=== PATIENT | female | born 1945 | race Caucasian/White ===

== ENCOUNTER 2018-06-18 06:17 | Day surgery (SDC) | payer OTHER ==
[2018-06-18] MEDS ORDERED: CEFAZOLIN/SWI 1gm 1 GM/10 ML SYR ONE (07:03)
[2018-06-18] MEDS ORDERED: Ringers Lactate 1,000 ML IV ONE (07:03)
[2018-06-18] MEDS ORDERED: MIDAZOLAM HCL 2 MG/2 ML INJ ONE (07:21)
[2018-06-18] MEDS ORDERED: PROPOFOL 200 MG/20 ML VIAL IV ONE (07:21)
[2018-06-18] MEDS ORDERED: FENTANYL CITR 100 MCG/2 ML ONE (07:21)
[2018-06-18] MEDS ORDERED: LIDOCAINE 2% MPF 5 ML VIAL ONE (07:22)
[2018-06-18] MEDS ORDERED: BACITRACIN 50000 UNIT VIAL ONE (08:31)
[2018-06-18] MEDS ORDERED: NS 0.9% VIAL 10 ML ONE (08:31)
[2018-06-18] MEDS ORDERED: KETOROLAC 30 MG/ML INJ ONE (09:12)
[2018-06-18] MEDS ORDERED: BACITRACIN OINTMENT 15 GM TUBE TOP ONE (09:16)
--- NOTE | 2018-06-18 09:52 | RAD REPORT ---
EXAM DESCRIPTION: RAD - Foot Left 2 View - 06/18/2018 9:14 am CLINICAL HISTORY: ORIF LEFT FOOT 1ST DIGIT COMPARISON: No comparisons FINDINGS: Fluoroscopic imaging is submitted from first left foot MTP joint ORIF procedure. Details o f the procedure not available. Total fluoro time 0.1 minutes.
[2018-06-18 09:57] VITALS: TEMP 97.5; O2SAT 97
[2018-06-18] MEDS ORDERED: TRAMADOL HCL 50 MG TAB ONE (10:45)
[2018-06-18 13:13] VITALS: BP 163/58
== END 2018-06-18 11:55 | disposition home or self-care (01) ==
LOC: OR 06:17
PROVIDERS: ATTEND Podiatrist Foot & Ankle Surgery
PROC: 0SRN0JZ Replacement of Left Metatarsal-Phalangeal Joint with Synthetic Substitute, Open Approach (ICD-10-PCS; principal; 2018-06-18 07:30)
DX: M20.22 Hallux rigidus, left foot (principal); J45.909 Unspecified asthma, uncomplicated; Z88.3 Allergy status to other anti-infective agents
CPT/HCPCS: 28291; 73620; 88300; J0690; J2250; J2704; J3010

== ENCOUNTER 2018-06-29 16:44 | Observation (INO) | payer OTHER ==
--- NOTE | 2018-06-29 17:54 | RAD REPORT ---
EXAM DESCRIPTION: CT - Abdomen Pelvis Wo Contrast - 06/29/2018 5:46 pm CLINICAL HISTORY: Abdominal pain. ABD PAIN COMPARISON: <Comparisons> TECHNIQUE: CT imaging of the abdomen and pelvis was performed without contrast. Solid organ, bowel a nd vascular assessment is limited due to lack of IV and oral contrast. All CT scans are performed using dose optimization technique as appropriate and may include automated exposure control or mA/KV adjustment according to patient size. FINDINGS: The lower lung molina are clear. The liver demonstrates fatty infiltration. The spleen, pancreas, adrenal glands and kidneys are withi n normal limits for a limited non-contrast examination. No bowel obstruction, free air, free fluid or abscess. Sigmoid diverticulosis without diverticulitis. The appendix is not identified as a discrete structure, however, no secondary findings of appendicit is are identified. Small umbilical fat containing hernia. Moderate lower lumbar degenerative changes. IMPRESSION: No acute intra-abdominal or pelvic findings. A limited non-contrast examination was performed as detailed.
[2018-06-29] MEDS ORDERED: FAMOTIDINE 20 MG/2 ML VIAL IV ONE (18:01)
[2018-06-29] MEDS ORDERED: METRONIDAZOLE 500mg IVPB 500 MG/100 ML BAG IV ONE (18:02)
[2018-06-29] MEDS ORDERED: NA CHLORIDE 0.9% 1,000 ML ONE (18:02)
[2018-06-29] MEDS ORDERED: CIPROFLOXACIN 400mg IV 400 MG/200 ML BAG IV ONE (18:02)
[2018-06-29 18:41] LABS: Absolute Lymphocytes (CBC) 2.5 K/uL (0.7-4.9); Absolute Monocytes 0.4 K/uL (0.1-1.3); Absolute Neutrophil 3.5 K/uL (1.8-8.0); Basophils % 1.1 % (0-1.3); Eosinophils % 1.2 % (0-4.4); Hematocrit 37.6 % (36.0-45.0); Lymphocytes % 37.8 % (15.3-44.8); MCH 29.8 pg (27.0-35.0); MPV 9.1 fL (7.6-11.3); Monocytes % 6.7 % (3.3-12.3); RBC Red Blood Cell Count 4.37 M/uL (3.86-4.86)
[2018-06-29 18:42] LABS: Protime INR 1.08
--- NOTE | 2018-06-29 18:47 | RAD REPORT ---
EXAM DESCRIPTION: RAD - Chest Single View - 06/29/2018 5:55 pm CLINICAL HISTORY: COUGH Chest pain. COMPARISON: No comparisons FINDINGS: Portable technique limits examination quality. The lungs are grossly clear. The heart is normal in size. No displaced fractures. IMPRESSION: No acute intrathoracic process suspected.
[2018-06-29 18:59] LABS: ALT/SGPT 40 U/L (12-78); AST/SGOT 29 U/L (15-37); Albumin 3.6 g/dL (3.4-5.0); Alkaline Phosphatase 68 U/L (45-117); BUN Blood Urea Nitrogen 10 mg/dL (7-18); Bicarbonate 25 mmol/L (21-32); Bilirubin Direct < 0.1 mg/dL (0-0.2); Bilirubin Total 0.2 mg/dL (0.2-1.0); Glucose Level 98 mg/dL (74-106); Lipase 444 U/L (73-393); Magnesium 2.1 mg/dL (1.8-2.4); NT PRO-BNP 172 pg/mL (<125); Protein, Total 7.2 g/dL (6.4-8.2); Sodium Level 144 mmol/L (136-145); Troponin (Emerg Dept Use Only) 0.06 ng/mL (0.0-0.045)
--- NOTE | 2018-06-29 20:04 | EDPHYS ---
Physician Documentation [facility] Name: Molly Munoz Age: 73 yrs Sex: Female : 1945 Arrival Date: 06/29/2018 Time: 16:54 Bed 27 Private MD: ED Physician Ranjeet Alcazar HPI: 06/29 19:59 This 73 yrs old Female presents to ER via EMS with complaints of Bloody rosa m Stools. 19:59 The patient presents to the emergency department with nausea, that is mild. Onset: The rosa m symptoms/episode began/occurred 2 day(s) ago. Possible causes: unknown. The symptoms are aggravated by nothing. The symptoms are alleviated by nothing. The patient presents to the emergency department with rectal bleeding, a small amount. Abdominal pain: none is appreciated. Modifying factors: The symptoms are alleviated by nothing, the symptoms are aggravated by nothing. Associated signs and symptoms: Pertinent positives: diarrhea. Historical: - Allergies: 17:02 Iodinated Contrast- Oral and IV Dye; tl3 17:02 Clarithromycin; tl3 17:02 Iodine; tl3 - Home Meds: 17:02 albuterol sulfate 90 mcg/actuation inhalation HFAA [Active]; amitriptyline Oral tl3 [Active]; azelastine nasal nasal [Active]; difluprednate ophthalmic ophthalmic [Active]; duloxetine oral oral [Active]; estradiol Oral [Active]; folic acid Oral [Active]; melatonin Oral [Active]; Omeprazole Oral [Active]; fenofibrate oral oral [Active]; - Immunization history:: Adult Immunizations up to date. - Social history:: Smoking status: unknown. - Ebola Screening: : No symptoms or risks identified at this time. - Family history:: not pertinent. ROS: 19:59 Constitutional: Negative for fever, chills, and weight loss, Eyes: Negative for injury, rosa m pain, redness, and discharge, ENT: Negative for injury, pain, and discharge, Neck: Negative for injury, pain, and swelling, Cardiovascular: Negative for chest pain, palpitations, and edema, Respiratory: Negative for shortness of breath, cough, wheezing, and pleuritic chest pain, Back: Negative for injury and pain, : Negative for injury, bleeding, discharge, and swelling, MS/Extremity: Negative for injury and deformity, Skin: Negative for injury, rash, and discoloration, Neuro: Negative for headache, weakness, numbness, tingling, and seizure, Psych: Negative for depression, anxiety, suicide ideation, homicidal ideation, and hallucinations, Allergy/Immunology: Negative for hives, rash, and allergies, Endocrine: Negative for neck swelling, polydipsia, polyuria, polyphagia, and marked weight changes, Hematologic/Lymphatic: Negative for swollen nodes, abnormal bleeding, and unusual bruising. 19:59 Abdomen/GI: Positive for abdominal pain, nausea, diarrhea. Exam: 19:59 Constitutional: This is a well developed, well nourished patient who is awake, alert, rosa m and in no acute distress. Head/Face: Normocephalic, atraumatic. Eyes: Pupils equal round and reactive to light, extra-ocular motions intact. Lids and lashes normal. Conjunctiva and sclera are non-icteric and not injected. Cornea within normal limits. Periorbital areas with no swelling, redness, or edema. ENT: Nares patent. No nasal discharge, no septal abnormalities noted. Tympanic membranes are normal and external auditory canals are clear. Oropharynx with no redness, swelling, or masses, exudates, or evidence of obstruction, uvula midline. Mucous membranes moist. Neck: Trachea midline, no thyromegaly or masses palpated, and no cervical lymphadenopathy. Supple, full range of motion without nuchal rigidity, or vertebral point tenderness. No Meningismus. Chest/axilla: Normal chest wall appearance and motion. Nontender with no deformity. No lesions are appreciated. Cardiovascular: Regular rate and rhythm with a normal S1 and S2. No gallops, murmurs, or rubs. Normal PMI, no JVD. No pulse deficits. Respiratory: Lungs have equal breath sounds bilaterally, clear to auscultation and percussion. No rales, rhonchi or wheezes noted. No increased work of breathing, no retractions or nasal flaring. Abdomen/GI: Soft, non-tender, with normal bowel sounds. No distension or tympany. No guarding or rebound. No evidence of tenderness throughout. Back: No spinal tenderness. No costovertebral tenderness. Full range of motion. Female : Normal external genitalia. Skin: Warm, dry with normal turgor. Normal color with no rashes, no lesions, and no evidence of cellulitis. MS/ Extremity: Pulses equal, no cyanosis. Neurovascular intact. Full, normal range of motion. Neuro: Awake and alert, GCS 15, oriented to person, place, time, and situation. Cranial nerves II-XII grossly intact. Motor strength 5/5 in all extremities. Sensory grossly intact. Cerebellar exam normal. Normal gait. Psych: Awake, alert, with orientation to person, place and time. Behavior, mood, and affect are within normal limits. 19:59 Abdomen/GI: Bowel sounds: normal, Palpation: abdomen is soft and non-tender, Rectal exam: rectal tone normal, Stool: guaiac negative, hemorrhoid(s), are not appreciated, mass, is not appreciated, swelling, is not appreciated, tenderness, is not appreciated, the exam is chaperoned by the nurse. Vital Signs: 17:02 BP 180 / 91; Pulse 84; Resp 18; Temp 98; Pulse Ox 100% on R/A; tl3 17:45 BP 162 / 75; Pulse 75; Resp 18; Pulse Ox 100% on R/A; tl3 19:05 BP 180 / 97; Pulse 79; Resp 18; Pulse Ox 100% on R/A; tl3 20:52 Weight 72.57 kg; tl3 20:53 BP 130 / 55; Pulse 96; Resp 18; Pulse Ox 100% on R/A; tl3 06/30 00:10 BP 149 / 83; Pulse 83; Resp 18; Pulse Ox 100% on R/A; tl3 MDM: 06/29 17:14 Patient medically screened. [facility] 19:59 Data reviewed: vital signs, nurses notes, lab test result(s), EKG, radiologic studies, [facility] CT scan, plain films. 06/29 17:26 Order name: Basic Metabolic Panel; Complete Time: 19:33 [facility] 06/29 17:26 Order name: CBC with Diff; Complete Time: 19:33 [facility] 06/29 17:26 Order name: LFT's; Complete Time: 19:33 [facility] 06/29 17:26 Order name: Magnesium; Complete Time: 19:33 [facility] 06/29 17:26 Order name: NT PRO-BNP; Complete Time: 19:33 [facility] 06/29 17:26 Order name: PT-INR; Complete Time: 19:33 [facility] 06/29 17:26 Order name: Troponin (emerg Dept Use Only); Complete Time: 19:33 [facility] 06/29 17:26 Order name: Lipase; Complete Time: 19:33 [facility] 06/29 17:26 Order name: Urine Culture [facility] 06/29 17:26 Order name: Type And Screen; Complete Time: 19:33 [facility] 06/29 20:08 Order name: ABO/RH no charge [facility] 06/30 05:11 Order name: CBC with Automated Diff [facility] 06/30 05:40 Order name: Comprehensive Metabolic Panel [facility] 06/30 05:40 Order name: Lipid Profile [facility] 06/29 17:26 Order name: XRAY Chest (1 view); Complete Time: 19:33 [facility] 06/29 17:26 Order name: EKG; Complete Time: 17:26 [facility] 06/29 17:26 Order name: Cardiac monitoring; Complete Time: 19:02 [facility] 06/29 17:26 Order name: EKG - Nurse/Tech; Complete Time: 19:02 [facility] 06/29 17:26 Order name: CT Abd/Pelvis - Without Cont; Complete Time: 19:33 [facility] 06/29 20:06 Order name: CONS Physician Consult; Complete Time: 20:55 [facility] 06/30 05:40 Order name: Magnesium [facility] 06/30 05:40 Order name: Lipase [facility] 06/29 17:26 Order name: IV Saline Lock; Complete Time: 19:02 [facility] 06/29 17:26 Order name: Labs collected and sent; Complete Time: 19:02 [facility] 06/29 17:26 Order name: O2 Per Protocol; Complete Time: 19:02 [facility] 06/29 17:26 Order name: O2 Sat Monitoring; Complete Time: 00:40 [facility] Administered Medications: 17:45 Drug: NS 0.9% 1000 ml Route: IV; Rate: 125 ml/hr; Site: left antecubital; Delivery: tl3 Primary tubing; 06/30 00:08 Follow up: IV Status: Order to discontinue infusion; IV Intake: 375ml tl3 06/29 17:45 Drug: Cipro 400 mg Volume: 200 ml; Route: IVPB; Infused Over: 60 mins; Site: left tl3 antecubital; Delivery: Primary tubing; 20:00 Follow up: IV Status: Completed infusion; IV Intake: 200ml tl3 17:45 Drug: Flagyl 500 mg Volume: 100 ml; Route: IVPB; Rate: 200 ml/hr; Infused Over: 30 tl3 mins; Site: left antecubital; Delivery: Primary tubing; 19:07 Follow up: IV Status: Completed infusion; IV Intake: 200ml tl3 19:01 Drug: Pepcid 20 mg Route: IVP; Infused Over: 2 mins; Site: left antecubital; tl3 20:05 Drug: Potassium Chloride 20 mEq Route: IV; Rate: per protocol; Site: left antecubital; tl3 Delivery: Primary tubing; 22:15 Follow up: IV Status: Completed infusion; IV Intake: 100ml tl3 20:05 Drug: NS 0.9% with KCl 20 mEq/L 1000 ml Route: IV; Rate: 125 ml/hr; Site: left tl3 antecubital; Delivery: Primary tubing; 20:55 Drug: Aspirin 162 mg Route: PO; tl3 21:00 Drug: Lovenox 1 mg/kg Route: Sub-Q; Site: abdomen; tl3 Disposition: 06/29/18 20:03 Hospitalization ordered by Neel Chavira for Observation. Preliminary diagnosis are Nausea, Gastrointestinal hemorrhage, unspecified - lower bleeding, Hypokalemia. - Bed requested for Telemetry/MedSurg (observation). - Status is Observation. aj1 - Condition is Stable. - Problem is new. - Symptoms have improved. UTI on Admission? No Signatures: Dispatcher [employer] EDMS June Menjivar Angela, RN RN aj1 La Elise RN RN mw Anderson, Corey, MD MD cha Lowrey, Tammy, RN RN tl3 Corrections: (The following items were deleted from the chart) 20:21 20:03 Hospitalization Ordered by Neel Chavira MD for Observation. Preliminary breann diagnosis is Nausea; Gastrointestinal hemorrhage, unspecified - lower bleeding; Hypokalemia. Bed requested for Telemetry/MedSurg (observation). Status is Observation. Condition is Stable. Problem is new. Symptoms have improved. UTI on Admission? No. rosa m 06/30 08:28 06/29 20:21 06/29/2018 20:03 Hospitalization Ordered by Neel Chavira MD for bd Observation. Preliminary diagnosis is Nausea; Gastrointestinal hemorrhage, unspecified - lower bleeding; Hypokalemia. Bed requested for [facility] ER HOLD. Status is Observation. Condition is Stable. Problem is new. Symptoms have improved. UTI on Admission? No. mw 06/30 12:52 08:28 06/29/2018 20:03 Hospitalization Ordered by Neel Chavira MD for Observation. aj1 Preliminary diagnosis is Nausea; Gastrointestinal hemorrhage, unspecified - lower bleeding; Hypokalemia. Bed requested for Telemetry/MedSurg (observation). Status is Observation. Condition is Stable. Problem is new. Symptoms have improved. UTI on Admission? No. bd
--- NOTE | 2018-06-29 20:04 | ER ---
Nurse's Notes [facility] Name: Molly Munoz Age: 73 yrs Sex: Female : 1945 Arrival Date: 06/29/2018 Time: 16:54 Bed 27 Private MD: Diagnosis: Nausea;Gastrointestinal hemorrhage, unspecified-lower bleeding;Hypokalemia Presentation: 06/29 16:54 Presenting complaint: EMS states: pt has had two days of bloody stools, complains of tl3 being diaphoretic due to medications that she is on since left foot surgery 10 days ago, also believes that she may have SARS due to the bloody stools. Transition of care: patient was not received from another setting of care. Onset of symptoms was June 27, 2018. Risk Assessment: Do you want to hurt yourself or someone else? Patient reports no desire to harm self or others. Initial Sepsis Screen: Does the patient meet any 2 criteria? No. Patient's initial sepsis screen is negative. Does the patient have a suspected source of infection? No. Patient's initial sepsis screen is negative. Care prior to arrival: None. 16:54 Method Of Arrival: EMS: [facility] tl3 16:54 Acuity: CASSIA 3 tl3 Triage Assessment: 17:02 General: Appears in no apparent distress. well groomed, well developed, well nourished, tl3 Behavior is calm, cooperative, appropriate for age. Pain: Complains of pain in gluteal cleft. EENT: No deficits noted. No signs and/or symptoms were reported regarding the EENT system. Neuro: No deficits noted. Cardiovascular: Patient's skin is warm and dry. Respiratory: Airway is patent Respiratory effort is even, unlabored, Respiratory pattern is regular, symmetrical, Breath sounds are clear bilaterally. GI: Reports bloody stool. : No signs and/or symptoms were reported regarding the genitourinary system. Derm: No signs and/or symptoms reported regarding the dermatologic system. Musculoskeletal: No signs and/or symptoms reported regarding the musculoskeletal system. Historical: - Allergies: 17:02 Iodinated Contrast- Oral and IV Dye; tl3 17:02 Clarithromycin; tl3 17:02 Iodine; tl3 - Home Meds: 17:02 albuterol sulfate 90 mcg/actuation inhalation HFAA [Active]; amitriptyline Oral tl3 [Active]; azelastine nasal nasal [Active]; difluprednate ophthalmic ophthalmic [Active]; duloxetine oral oral [Active]; estradiol Oral [Active]; folic acid Oral [Active]; melatonin Oral [Active]; Omeprazole Oral [Active]; fenofibrate oral oral [Active]; - Immunization history:: Adult Immunizations up to date. - Social history:: Smoking status: unknown. - Ebola Screening: : No symptoms or risks identified at this time. - Family history:: not pertinent. Screenin:05 Abuse screen: Denies threats or abuse. Nutritional screening: No deficits noted. tl3 Tuberculosis screening: No symptoms or risk factors identified. Fall Risk None identified. Assessment: 17:05 Reassessment: No changes from previously documented assessment. tl3 17:45 Reassessment: Patient appears in no apparent distress at this time. No changes from tl3 previously documented assessment. Patient and/or family updated on plan of care and expected duration. Pain level reassessed. Patient is alert, oriented x 3, equal unlabored respirations, skin warm/dry/pink. pt back from Radiology. 19:05 Reassessment: Patient appears in no apparent distress at this time. No changes from tl3 previously documented assessment. Patient and/or family updated on plan of care and expected duration. Pain level reassessed. Patient is alert, oriented x 3, equal unlabored respirations, skin warm/dry/pink. 20:53 Reassessment: Patient appears in no apparent distress at this time. No changes from tl3 previously documented assessment. Patient and/or family updated on plan of care and expected duration. Pain level reassessed. Patient is alert, oriented x 3, equal unlabored respirations, skin warm/dry/pink. 06/30 00:10 Reassessment: Patient appears in no apparent distress at this time. No changes from tl3 previously documented assessment. Patient and/or family updated on plan of care and expected duration. Pain level reassessed. Patient is alert, oriented x 3, equal unlabored respirations, skin warm/dry/pink. Vital Signs: 06/29 17:02 BP 180 / 91; Pulse 84; Resp 18; Temp 98; Pulse Ox 100% on R/A; tl3 17:45 BP 162 / 75; Pulse 75; Resp 18; Pulse Ox 100% on R/A; tl3 19:05 BP 180 / 97; Pulse 79; Resp 18; Pulse Ox 100% on R/A; tl3 20:52 Weight 72.57 kg; tl3 20:53 BP 130 / 55; Pulse 96; Resp 18; Pulse Ox 100% on R/A; tl3 06/30 00:10 BP 149 / 83; Pulse 83; Resp 18; Pulse Ox 100% on R/A; tl3 ED Course: 06/29 16:54 Patient arrived in ED. tl3 16:58 Triage completed. tl3 17:02 Arm band placed on right wrist. tl3 17:05 Patient has correct armband on for positive identification. Bed in low position. Call tl3 light in reach. Side rails up X 1. Pulse ox on. NIBP on. 17:05 No provider procedures requiring assistance completed. tl3 17:14 Ranjeet Alcazar MD is Attending Physician. rosa m 17:45 Initial lab(s) drawn, by nj, sent to lab. Inserted saline lock: 20 gauge in left tl3 antecubital area, using aseptic technique. Blood collected. 17:46 CT Abd/Pelvis - Without Cont In Process Unspecified. EDMS 17:46 CT completed. Patient moved to CT via wheelchair. Patient moved to CT via stretcher. cw1 17:47 Mechelle Benitez, RN is Primary Nurse. tl3 17:55 XRAY Chest (1 view) In Process Unspecified. EDMS 20:02 Neel Chavira MD is Hospitalizing Provider. rosa m 20:53 Patient admitted, IV remains in place. tl3 06/30 00:08 Wound care: to surgical located on left foot was dressed with Vaseline gauze, non stick tl3 dressing, wrapped with myra bandage. Administered Medications: 06/29 17:45 Drug: NS 0.9% 1000 ml Route: IV; Rate: 125 ml/hr; Site: left antecubital; Delivery: tl3 Primary tubing; 06/30 00:08 Follow up: IV Status: Order to discontinue infusion; IV Intake: 375ml tl3 06/29 17:45 Drug: Cipro 400 mg Volume: 200 ml; Route: IVPB; Infused Over: 60 mins; Site: left tl3 antecubital; Delivery: Primary tubing; 20:00 Follow up: IV Status: Completed infusion; IV Intake: 200ml tl3 17:45 Drug: Flagyl 500 mg Volume: 100 ml; Route: IVPB; Rate: 200 ml/hr; Infused Over: 30 tl3 mins; Site: left antecubital; Delivery: Primary tubing; 19:07 Follow up: IV Status: Completed infusion; IV Intake: 200ml tl3 19:01 Drug: Pepcid 20 mg Route: IVP; Infused Over: 2 mins; Site: left antecubital; tl3 20:05 Drug: Potassium Chloride 20 mEq Route: IV; Rate: per protocol; Site: left antecubital; tl3 Delivery: Primary tubing; 22:15 Follow up: IV Status: Completed infusion; IV Intake: 100ml tl3 20:05 Drug: NS 0.9% with KCl 20 mEq/L 1000 ml Route: IV; Rate: 125 ml/hr; Site: left tl3 antecubital; Delivery: Primary tubing; 20:55 Drug: Aspirin 162 mg Route: PO; tl3 21:00 Drug: Lovenox 1 mg/kg Route: Sub-Q; Site: abdomen; tl3 Intake: 19:07 IV: 200ml; Total: 200ml. tl3 20:00 IV: 200ml; Total: 400ml. tl3 22:15 IV: 100ml; Total: 500ml. tl3 06/30 00:08 IV: 375ml; Total: 875ml. tl3 Outcome: 06/29 20:03 Decision to Hospitalize by Provider. rosa m 20:53 Admitted to ER Hold. Please see [facility] for further documentation. tl3 20:53 Condition: stable 20:53 Instructed on the need for admit, Demonstrated understanding of instructions. 06/30 12:52 Patient left the ED. aj1 Signatures: Dispatcher [employer] Magalis Wakefield RN RN aj1 Ranjeet Alcazar MD MD cha Woodley, Crystal cw1 Mechelle Benitez, CASA RN tl3
[2018-06-29] MEDS ORDERED: ASPIRIN 81 MG CHEWABLE TABLET ONE ×2 (21:05→21:24)
[2018-06-29] MEDS ORDERED: NS KCL 20MEQ 1,000 ML IV ONE ×2 (21:06→21:07)
[2018-06-29] MEDS ORDERED: ENOXAPARIN 30 MG/0.3 ML SQ ONE (21:06)
[2018-06-29] MEDS ORDERED: ENOXAPARIN 40 MG/0.4 ML SQ ONE (21:06)
[2018-06-29] MEDS ORDERED: KCL 20 MEQ/100 mL IVPB 20 MEQ/100 ML BAG IV ONE (21:07)
[2018-06-29] MEDS ORDERED: ACETAMINOPHEN 500 MG TAB PO PRN (21:23)
[2018-06-29] MEDS ORDERED: MORPHINE 2 MG/ML SYR IV PRN (21:23)
[2018-06-29] MEDS ORDERED: ONDANSETRON 4 MG/2 ML VIAL IV PRN (21:23)
[2018-06-29] MEDS ORDERED: NA CHLORIDE 0.9% 1,000 ML IV SCH (22:00)
[2018-06-30 02:54] VITALS: O2SAT 98
[2018-06-30] MEDS ORDERED: NS KCL 20MEQ 1,000 ML IV ONE (04:01)
[2018-06-30 05:09] LABS: Absolute Lymphocytes (CBC) 2.2 K/uL (0.7-4.9); Absolute Monocytes 0.4 K/uL (0.1-1.3); Absolute Neutrophil 2.3 K/uL (1.8-8.0); Basophils % 1.2 % (0-1.3); Eosinophils % 1.6 % (0-4.4); Hematocrit 34.7 % (36.0-45.0); Lymphocytes % 43.9 % (15.3-44.8); MCH 28.9 pg (27.0-35.0); MCV 86.7 fL (80-100); MPV 8.7 fL (7.6-11.3); Monocytes % 8.1 % (3.3-12.3); RBC Red Blood Cell Count 4.01 M/uL (3.86-4.86)
[2018-06-30 05:27] LABS: ALT/SGPT 32 U/L (12-78); AST/SGOT 22 U/L (15-37); Albumin 2.9 g/dL (3.4-5.0); Alkaline Phosphatase 58 U/L (45-117); BUN Blood Urea Nitrogen 7 mg/dL (7-18); Bicarbonate 23 mmol/L (21-32); Bilirubin Total 0.2 mg/dL (0.2-1.0); Glucose Level 95 mg/dL (74-106); HDL Cholesterol 44 mg/dL (40-60); LDL Cholesterol, Calculated 72 (<130); Lipase 414 U/L (73-393); Magnesium 1.8 mg/dL (1.8-2.4); Potassium 3.2 mmol/L (3.5-5.1); Sodium Level 147 mmol/L (136-145)
[2018-06-30] MEDS ORDERED: DEXTRAN 70 OP PRN (07:22)
[2018-06-30] MEDS ORDERED: HYPROMELLOSE OP PRN (07:22)
--- NOTE | 2018-06-30 07:34 | EKG ---
Test Date: 2018-06-29 Test Time: 20:40:06 Line Tender: MEASUREMENT RESULTS: Intervals: Rate: 66 VA: 146 QRSD: 94 QT: 448 QTc: 469 [place]: P: 73 VA: 146 QRS: 60 T: 73 INTERPRETIVE STATEMENTS: Normal sinus rhythm Normal ECG No previous ECG available for comparison Electronically Signed On 06-30-18 07:33:21 PATHOLOGY LAB TECHNICIAN by Tesfaye Cross
[2018-06-30] MEDS ORDERED: NACHLORIDE 0.45% 1,000 ML IV SCH (08:00)
--- NOTE | 2018-06-30 08:38 | P.HP ---
Certification for Inpatient Patient admitted to: Observation With expected LOS: <2 Midnights Patient will require the following post-hospital care: None Practitioner: I am a practitioner with admitting privileges, knowledge of patient current condition, hospital course, and medical plan of care. Services: Services provided to patient in accordance with Admission requirements found in Title 42 Section 412.3 of the Code of Federal Regulations Patient History Date of Service: 06/29/18 Reason for admission: Intractable nausea and vomiting/lower GI bleeding/ elevated troponin History of Present Illness: Patient is a 73-year-old female came into the hospital with intractable nausea and vomiting. Patient also had persistent diarrhea. Her diarrhea has been her biggest complaint. This has been going on for the last 2 days. She has gone numerous times throughout today, and patient continues to have some lower GI bleeding. Patient recently had surgery on her left foot. Since that time she has been doing okay except for the occasional pain. Patient does not have any blood thinning medication. She came into the hospital for further evaluation. Allergies clarithromycin [From Biaxin] Adverse Reaction (Verified 06/16/18 13:13) swelling Iodinated Contrast- Oral and IV Dye Adverse Reaction (Verified 06/16/18 13:13) swelling iodine Adverse Reaction (Verified 06/16/18 13:13) swelling Home Medications: Albuterol Inhaler [Ventolin Inhaler] 2 puff IH Q6H PRN 06/16/18 Albuterol Neb [Proventil 0.083% Neb Soln] 2.5 mg IH BID 06/16/18 Amitriptyline HCl 100 mg PO BEDTIME 06/16/18 Duloxetine HCl 30 mg PO DAILY 06/16/18 Estradiol [Vagifem] 10 mcg VG EVERY 3RD DAY 06/16/18 Fenofibrate [Tricor] 145 mg PO DAILY 06/16/18 Folic Acid 0.8 mg PO DAILY 06/16/18 Multivitamin [Multivitamins] 1 each PO DAILY 06/16/18 Omeprazole 20 mg PO DAILY 06/16/18 Dextran 70/Hypromellose [Natural Balance Tears Eye Drop] 15 ml OP Q12HR PRN - Past Medical/Surgical History Has patient received pneumonia vaccine in the past: Yes Diabetic: No -: Fibromyalgia -: Arthritis -: Bilat knee replacement -: Cystocele sx - badder suspension -: 4 eye surgeries -: Tonsillectomy -: L. foot sx - 06/18/18 - Dr. Killian -: R. foot sx - Social History Smoking Status: Former smoker Alcohol use: No CD- Drugs: No Caffeine use: Yes Place of Residence: Home Review of Systems 10-point ROS is otherwise unremarkable Physical Examination - Vital Signs Temperature: 98.9 F Blood Pressure: 176/70 Pulse: 72 Respirations: 18 Pulse Ox (%): 99 - Physical Exam General: Alert, In no apparent distress, Oriented x3 HEENT: Atraumatic, PERRLA, Mucous membr. moist/pink, EOMI, Sclerae nonicteric Neck: Supple, 2+ carotid pulse no bruit, No LAD, Without JVD or thyroid abnormality Respiratory: Clear to auscultation bilaterally, Normal air movement Cardiovascular: Regular rate/rhythm, Normal S1 S2, No murmurs Gastrointestinal: Normal bowel sounds, Soft and benign, Non-distended, No tenderness Musculoskeletal: No clubbing, No swelling, No tenderness Integumentary: No rashes Neurological: Normal gait, Normal speech, Normal strength at 5/5 x4 extr, Normal tone, Sensation intact, Cranial nerves 3-12 intact, Normal affect Lymphatics: No axilla or inguinal lymphadenopathy - Studies Laboratory Data (last 24 hrs) 06/29/18 18:00: PT 12.7 H, INR 1.08 06/29/18 18:00: WBC 6.6, Hgb 13.0, Hct 37.6, Plt Count 333 06/29/18 18:00: Sodium 144, Potassium 3.0 L, BUN 10, Creatinine 0.70, Glucose 98 , Magnesium 2.1, Total Bilirubin 0.2, AST 29, ALT 40, Alkaline Phosphatase 68, Lipase 444 H Assessment & Plan - Problems (Diagnosis) (1) GI bleed Current Visit: Yes Status: Acute (2) Nausea & vomiting Current Visit: Yes Status: Acute (3) Status post left foot surgery Current Visit: Yes Status: Acute (4) Diarrhea Current Visit: Yes Status: Acute - Plan Plan: 1. Continue with IV hydration 2. Cardiology consultation 3. Continue with pain control 4. NPO and resume clear liquid diet in the morning if no more diarrhea 5. GI consultation in a.m. if hemoglobin decreases 6. Serial H&H, and we will monitor LFTs and lipase along with electrolytes. 7. GI and DVT prophylaxis Discharge Plan: Home Plan to discharge in: 24 Hours - Advance Directives Does patient have a Living Will: No Does patient have a Durable POA for Healthcare: No - Code Status/Comfort Care Code Status Assessed: Yes Code Status: Full Code Critical Care: No Time Spent Managing PTS Care (In Minutes): 50
[2018-06-30] MEDS ORDERED: FENOFIBRATE 160 MG TAB PO SCH (09:00)
[2018-06-30] MEDS ORDERED: FOLIC ACID 1 MG TABLET PO SCH (09:00)
[2018-06-30] MEDS ORDERED: MULTIVIT W/ MINERAL TAB PO SCH (09:00)
[2018-06-30] MEDS ORDERED: DULOXETINE 30 MG CAP PO SCH (09:00)
[2018-06-30] MEDS ORDERED: FOLIC ACID 1 MG TABLET ONE (10:19)
[2018-06-30 13:33] VITALS: BMI 29.3
--- NOTE | 2018-06-30 16:28 | P.DS ---
Admission Date: 06/29/18 Discharge Date: 06/30/18 Primary Care Provider: Saúl Jimenez; Cardiology-Dr. Martinez Disposition: ROUTINE DISCHARGE Discharge Condition: GOOD Reason for Admission: Intractable nausea and vomiting/lower GI bleeding/ elevated troponin Consultations: Cardiology-Dr. Cross Procedures: CT Scan: CLINICAL HISTORY: Abdominal pain. ABD PAIN COMPARISON: <Comparisons> TECHNIQUE: CT imaging of the abdomen and pelvis was performed without contrast. Solid organ, bowel and vascular assessment is limited due to lack of IV and oral contrast. All CT scans are performed using dose optimization technique as appropriate and may include automated exposure control or mA/KV adjustment according to patient size. FINDINGS: The lower lung molina are clear. The liver demonstrates fatty infiltration. The spleen, pancreas, adrenal glands and kidneys are within normal limits for a limited non-contrast examination. No bowel obstruction, free air, free fluid or abscess. Sigmoid diverticulosis without diverticulitis. The appendix is not identified as a discrete structure, however, no secondary findings of appendicitis are identified. Small umbilical fat containing hernia. Moderate lower lumbar degenerative changes. IMPRESSION: No acute intra-abdominal or pelvic findings. Medical Problem List: Nausea, vomiting with mild rectal bleeding and diarrhea likely viral Brief History of Present Illness: 73-year-old female presented emergency room with nausea, vomiting and diarrhea. Patient evaluated in the emergency room. Patient admitted for further evaluation. Hospital Course: Patient presented with nausea, vomiting and diarrhea. Patient also had mild rectal bleeding. CT scan revealed no significant abnormality. Viral infection suspected. Patient was able tolerate her diet. No significant abdominal pain at discharge. No rectal bleeding noted at discharge. Diarrhea mild. C diff culture obtained. Patient will continue with Imodium [id number] as needed for diarrhea. Continue with GI soft diet and advance as tolerated. Patient will follow up with a PCP within 1 week to follow up this hospitalization. Vital Signs/Physical Exam: Temp Pulse Resp BP Pulse Ox 98.0 F 78 16 129/83 99 06/30/18 13:07 06/30/18 13:07 06/30/18 13:07 06/30/18 13:07 06/30/18 13:07 General: Alert, In no apparent distress, Oriented x3, Cooperative HEENT: Atraumatic Neck: Supple Respiratory: Clear to auscultation bilaterally Cardiovascular: Normal pulses, Regular rate/rhythm Gastrointestinal: Normal bowel sounds, Soft and benign, Non-distended, No tenderness, No masses, No rebound, No guarding Musculoskeletal: No erythema, No tenderness, No warmth Integumentary: No tenderness/swelling, No erythema, No warmth, No cyanosis Neurological: Normal speech, Normal strength at 5/5 x4 extr, Normal tone, Normal affect Laboratory Data at Discharge: WBC 5.1 K/uL (4.3-10.9) D 06/30/18 04:00 Hgb 11.6 g/dL (12.0-15.0) L 06/30/18 04:00 Hct 34.7 % (36.0-45.0) L 06/30/18 04:00 Plt Count 259 K/uL (152-406) D 06/30/18 04:00 PT 12.7 SECONDS (9.5-12.5) H 06/29/18 18:00 INR 1.08 06/29/18 18:00 Sodium 147 mmol/L (136-145) H 06/30/18 04:00 Potassium 3.2 mmol/L (3.5-5.1) L 06/30/18 04:00 BUN 7 mg/dL (7-18) 06/30/18 04:00 Creatinine 0.60 mg/dL (0.55-1.3) 06/30/18 04:00 Glucose 95 mg/dL (74-106) 06/30/18 04:00 Magnesium 1.8 mg/dL (1.8-2.4) 06/30/18 04:00 Total Bilirubin 0.2 mg/dL (0.2-1.0) 06/30/18 04:00 AST 22 U/L (15-37) 06/30/18 04:00 ALT 32 U/L (12-78) 06/30/18 04:00 Alkaline Phosphatase 58 U/L (45-117) 06/30/18 04:00 Triglycerides 232 mg/dL (<150) H 06/30/18 04:00 Cholesterol 162 mg/dL (<200) 06/30/18 04:00 HDL Cholesterol 44 mg/dL (40-60) 06/30/18 04:00 Cholesterol/HDL Ratio 3.68 06/30/18 04:00 Lipase 414 U/L (73-393) H 06/30/18 04:00 Home Medications: Albuterol Inhaler [Ventolin Inhaler*] 2 puff IH Q6H PRN 06/16/18 Albuterol Neb [Proventil 0.083% Neb Soln] 2.5 mg IH BID 06/16/18 Amitriptyline HCl 100 mg PO BEDTIME 06/16/18 Duloxetine HCl 30 mg PO DAILY 06/16/18 Estradiol [Vagifem] 10 mcg VG EVERY 3RD DAY 06/16/18 Fenofibrate [Tricor*] 145 mg PO DAILY 06/16/18 Folic Acid 0.8 mg PO DAILY 06/16/18 Multivitamin [Multivitamins] 1 each PO DAILY 06/16/18 Omeprazole 20 mg PO DAILY 06/16/18 Dextran 70/Hypromellose [Natural Balance Tears Eye Drop] 15 ml OP Q12HR PRN Loperamide HCl [Imodium A-D] 2 mg PO BID PRN #15 tablet 06/30/18 New Medications: Loperamide HCl [Imodium A-D] 2 mg PO BID PRN #15 tablet PRN Reason: Diarrhea Patient Discharge Instructions: 1. Patient will need to follow up with her PC in one week to monitor her progress. 2. Patient presented with diarrhea, nausea and vomiting. This has improved. Now with no nausea and vomiting. No pain or rectal bleeding. Diarrhea improved. Likely viral. Will continue with Imodium OTC as needed BID. Continue with soft gi diet and advance as tolerated. Follow up with PCP this week to follow up this hospitalization. Diet: gi soft then advance as tolerated Activity: Ad gabby Time spent managing pt's care (in minutes): 55
--- NOTE | 2018-06-30 17:02 | ECHO ---
HEIGHT: 5 ft 3 in WEIGHT: 165 lb 14.4 oz DATE OF STUDY: 06/30/[address]: Tesfaye Cross MD 2-DIMENSIONAL: YES M.MODE: YES DOPPLER: YES COLOR FLOW: YES TDS: PORTABLE: DEFINITY: BUBBLE STUDY: DIAGNOSIS: ABNORMAL TROP CARDIAC HISTORY: CATHERIZATION: SURGERY: PROSTHETIC VALVE: PACEMAKER: MEASUREMENTS (cm) DIASTOLIC (NORMALS) SYSTOLIC (NORMALS) IVSd 1.0 (0.6-1.2) LA Diam 3.8 (1.9-4.0) LVEF 78% LVIDd 3.7 (3.5-5.7) LVIDs 2.0 (2.0-3.5) %FS 46% LVPWd 1.1 (0.6-1.2) Ao Diam 2.5 (2.0-3.7) 2 DIMENSIONAL ASSESSMENT: RIGHT ATRIUM: NORMAL LEFT ATRIUM: NORMAL RIGHT VENTRICLE: NORMAL LEFT VENTRICLE: SIGMOID SEPTUM TRICUSPID VALVE: NORMAL MITRAL VALVE: NORMAL PULMONIC VALVE: NORMAL AORTIC VALVE: NORMAL PERICARDIAL EFFUSION: NONE AORTIC ROOT: NORMAL LEFT VENTRICULAR WALL MOTION: NORMAL DOPPLER/COLOR FLOW: MILD MITRAL REGURGITATION AND TRICUSPID REGURGITATION. NORMAL RIGHT VENTRICULAR SYSTOLIC PRESSURE. COMMENTS: NORMAL LEFT VENTRICULAR EJECTION FRACTION. SIGMOID SEPTUM, NORMAL VARIANT. MILD MITRAL REGURGITATION AND TRICUSPID REGURGITATION. TECHNOLOGIST: JAMARCUS SALMON
--- NOTE | 2018-06-30 17:18 | CON ---
CARDIOLOGY CONSULT History Of Present Illness: Mrs. Munoz is 73. She came to the hospital because she had lots of diar rafita. I am asked to see her because a troponin level was drawn and it is 0.06, which is above normal . The patient has never had any kind of heart disease. She does not have diabetes or dyslipidemia. She had a noninvasive cardiac workup in April or May of this year, it was all normal include d an echocardiogram, nuclear stress test, EKGs, x-rays that was a preop evaluation before she had ank le surgery. Ankle surgery was done and she has had no complications from that. She does not get hanna st pain. Has not been having chest pain. She uses no tobacco. Does not have diabetes. She reports drug intolerance to x-ray contrast material and clarithromycin. She normally takes albuterol, amitr iptyline, duloxetine, estradiol, fenofibrate, folic acid, multivitamin, omeprazole, and dextran tears eyedrops. Laboratory Data: Troponin of 0.06. It includes low levels of potassium and N-terminal proBNP is 172 , but that is virtually normal. Lipase level is elevated. Amylase was not done. Total cholesterol 162, HDL 44. Blood sugars 98 and 95. Her electrocardiogram shows everything is normal. Impression: My impression is that the troponin level of 0.06 is nothing more than a false-positive t est. I think we can do an echocardiogram either today or tomorrow and see if there is any wall motio n abnormality. We do not need to pursue this any further. KYLAH/STEPHANIE Voice ID: [id number] Report ID: [id number]
[2018-06-30 18:01] VITALS: BP 138/98; TEMP 98.3
[2018-06-30] MEDS ORDERED: AMITRIPTYLINE 50 MG TAB PO SCH (21:00)
[2018-07-01] MEDS ORDERED: PANTOPRAZOLE 40MG TABLET PO SCH (06:30)
== END 2018-06-30 17:55 | disposition home or self-care (01) ==
LOC: ER 16:44 → ERHOLD 20:04 → 4TH 06-30 11:44
PROVIDERS: ADMIT Hospitalist; ATTEND Hospitalist
DX: R19.7 Diarrhea, unspecified (principal); R11.2 Nausea with vomiting, unspecified; K62.5 Hemorrhage of anus and rectum; Z87.891 Personal history of nicotine dependence; Z96.653 Presence of artificial knee joint, bilateral
CPT/HCPCS: 36415; 71045; 74176; 80048; 80053; 80061; 80076; 83690 ×2; 83735 ×2; 83880; 84484; 85025 ×2; 85610; 86850; 86900; 86901; 93005; 93306; 96361 ×2; 96365 ×2; 96366 ×2; 96367 ×2; 96368 ×2; 96372; 96375 ×2; 99285 ×2; G0378 ×2; J0744; J1650 ×2; J7030

== ENCOUNTER → 2022-05-16 | Day surgery (SDC) | payer OTHER ==
--- NOTE | 2022-05-16 12:05 | RAD REPORT ---
EXAM DESCRIPTION: Ultrasound-guided vacuum assisted left breast core biopsy CLINICAL HISTORY: Breast mass N63.23 COMPARISON: No comparisons FINDINGS: Informed consent was obtained and time-out was performed. The patient's left breast was prepped and draped in the usual sterile fashion. 1% lidocaine was used for local anesthetic purposes. Utilizing aseptic technique and ultrasound guidance, a 12 gauge vacuum assisted core biopsy device wa s used to obtain single core specimens through the mass of interest 5 o'clock position. The lesion wa s seen to completely collapse after single needle path, indicating that this lesion represents a cyst . All collected material was sent for cytology. Patient tolerated procedure well. IMPRESSION: Successful ultrasound guided vacuum assisted left breast mass biopsy. After a single nee dle pass, the lesion was seen to completely collapse, indicating that it represents a cyst.
== END ==
LOC: DS 08:00
PROVIDERS: ATTEND Surgery
DX: N63.23 Unspecified lump in the left breast, lower outer quadrant (principal)
CPT/HCPCS: 19083; 88305